=== PATIENT | female | born 1940 | race Caucasian/White ===

== ENCOUNTER 2016-10-15 23:30 | Emergency (ER) | payer MEDICARE, OTHER ==
[~2016-10-15] VITALS: Ht 175.3 cm; Wt 80.0 kg
[~2016-10-15 23:30] MED LIST: AMLO5TAB96 PO; CALCIUM SQ; CITA40 PO; CLON.5 OR; COUM3TAB PO; ERGO50000 PO; HYDR-3580 PO; METO25 PO; NEUR300C OR; OMPR20CCR PO; SIMV20TA PO; TRIH2 PO; [UNRECOGNIZED DRUG - CODE] EACH EYE
[2016-10-15 23:40] VITALS: BP 136/91; PULSE 82; RESP 20; TEMP 98.8; O2SAT 95
[2016-10-15] MEDS ORDERED: AMLO5TAB2 PO (23:54)
[2016-10-15] MEDS ORDERED: TRIH2 PO (23:54)
[2016-10-15] MEDS ORDERED: SERT-129 PO (23:54)
[2016-10-15] MEDS ORDERED: METO25TA3 PO (23:54)
[2016-10-15] MEDS ORDERED: GABA300C5 PO (23:54)
[2016-10-15] MEDS ORDERED: LUMI0.01 EACH EYE (23:54)
[2016-10-15] MEDS ORDERED: CLON0.5T PO (23:54)
[2016-10-15] MEDS ORDERED: OMEP20TA PO (23:54)
[2016-10-16] MEDS ORDERED: oxyCODONE/ACETAMINOPHEN 5 MG/325 MG TAB PO ONE (00:30)
--- NOTE | 2016-10-16 01:03 | PD ---
HPI . Fall Chief Complaint: Fall Time Seen by Provider: 00:24 Travel History International Travel<30 days: No Contact w/Intl Traveler<30days: No Traveled to known affect area: No History of Present Illness HPI Patient presents to us for evaluation of injury sustained in a fall. It was a mechanical fall. She reports injury to the left shoulder, right groin and left knee. They said her shoulder pain is very mild and rates it a 2 out of 10. She states her left knee pain is severe and she rates it as a 9 out of 10. PFSH Past Medical History Arthritis: Yes Heart Rhythm Problems: Yes Cancer: No Cardiovascular Problems: Yes High Cholesterol: Yes Diabetes: No Endocrine: No Gastrointestinal Disorders: Yes GERD: Yes Genitourinary: No Hypertension: Yes Immune Disorder: No Musculoskeletal: Yes Neurologic: Yes (spasmodic torticollis) Psychiatric: No Reproductive: Yes Respiratory: No Thyroid Disease: No Past Surgical History Body Medical Devices: HARDWARE DEXTER. HIPS Coronary Artery Bypass Graft: Yes Ear Surgery: Yes (bilateral cataract, LEFT RETINA REP.) Gynecologic Surgery: Yes (hysterectomy) Hysterectomy: Yes Neurologic Surgery: Yes (CERVICAL FUSION) Pacemaker: No Other Surgery: Yes (BELOW KNEE AMP LEFT LEG S/P NECROTIZING FASCITIS) Social History Alcohol Use: Yes (WINE ONCE A MONTH) Tobacco Use: No Substance Use: No Allergies-Medications (Allergen,Severity, Reaction): Coded Allergies: Contrast Media (Verified Allergy, Severe, 07/08/12) Erythrocin (Verified Allergy, Severe, 10/15/16) Morphine (Verified Allergy, Severe, 07/08/12) Streptomycin Sulfate (Verified Allergy, Severe, 07/08/12) Reported Meds & Prescriptions Reported Meds & Active Scripts Active Reported Gabapentin 300 Mg Cap 300 Mg PO TID Amlodipine (Amlodipine Besylate) 5 Mg Tab 5 Mg PO DAILY Omeprazole 20 Mg Tab 20 Mg PO BID Lumigan Opth Drops (Bimatoprost) 0.01% Soln 1 Drop EACH EYE HS Clonazepam 0.5 Mg Tab 1 Mg PO BID Trihexyphenidyl (Trihexyphenidyl HCl) 2 Mg Tab 1-2 Mg PO BID Metoprolol Tartrate 25 Mg Tab 25 Mg PO BID Sertraline (Sertraline HCl) 100 Mg Tab 50-100 Mg PO DAILY Review of Systems Except as stated in HPI: all other systems reviewed are Neg Musculoskeletal: Positive: Myalgias, Arthralgias Physical Exam Narrative GENERAL: Awake and alert and in no acute distress. SKIN: Warm and dry. HEAD: Atraumatic. Normocephalic. EYES: Pupils equal and round. NECK: Trachea midline. CARDIOVASCULAR: Regular rate and rhythm. RESPIRATORY: No accessory muscle use. MUSCULOSKELETAL: Previous left BKA. There is no obvious deformity of any of the aforementioned joints. She is noted to be pulling herself over in bed using her left arm. Log rolling of the right lower extremity does cause groin pain. NEUROLOGICAL: Awake and alert. No obvious cranial nerve deficits. Motor grossly within normal limits. Normal speech. PSYCHIATRIC: Appropriate mood and affect; insight and judgment normal. Data Data Last Documented VS Vital Signs Date Time Temp Pulse Resp B/P Pulse Ox O2 Delivery O2 Flow Rate FiO2 10/15/16 23:44 81 21 96 Room Air 10/15/16 23:40 98.8 136/91 Orders Hip, Uni(Ap&Lat) Wo Ap Pelvis (10/16/16 00:24) Knee, Ltd (1 Or 2vws) (10/16/16 00:24) Shoulder, Limited(2vws) (10/16/16 00:24) Oxycodone-Acetamin 5-325 Mg (Percocet (10/16/16 00:30) MDM Medical Decision Making Medical Screen Exam Complete: Yes Emergency Medical Condition: Yes Differential Diagnosis Differential diagnosis of extremity trauma includes but is not limited to fracture, sprain or strain, dislocation, contusion Narrative Course Patient presents for evaluation of injury sustained in a fall. She has no obvious external signs of injury. Last Impressions Shoulder X-Ray 10/16/1623 Signed Impressions: Service Date/Time: Sunday, October 16, 2016 00:47 - CONCLUSION: Unremarkable limited examination of the left shoulder. Sean Kelly MD Knee X-Ray 10/16/1623 Signed Impressions: Service Date/Time: Sunday, October 16, 2016 00:46 - CONCLUSION: Status post fwtvy-ejq-ccle amputation without evidence of fracture. Sean Kelly MD Hip X-Ray 10/16/1623 Signed Impressions: Service Date/Time: Sunday, October 16, 2016 00:46 - CONCLUSION: Status post right bipolar hemiarthroplasty without complication or fracture Sean Kelly MD The x-rays were all independently viewed by me Diagnosis Primary Impression: Strain of right inguinal muscle Qualified Code: S39.013A - Strain of right inguinal muscle, initial encounter Additional Impressions: Left shoulder strain Qualified Code: S46.912A - Left shoulder strain, initial encounter Contusion of left knee Qualified Code: S80.02XA - Contusion of left knee, initial encounter Patient Instructions: Contusion in Adults (DC), General Instructions, Groin Strain (ED), Narcotic given in the ED Disposition: 01 DISCHARGE HOME Condition: Stable Mattie Razo MD Oct 16, 2016 01:03
--- NOTE | 2016-10-16 01:06 | RADRPT ---
EXAM DATE/TIME: 10/16/2016 00:46 [facility] COMPARISON: No previous studies available for comparison. INDICATIONS : Right hip pain from fall tonight. MEDICAL HISTORY : None. SURGICAL HISTORY : Total right hip replacement. ENCOUNTER: Initial ACUITY: 1 day PAIN SCORE: 5/10 LOCATION: Right hip. FINDINGS: A two view examination of the right hip was performed. Patient has had a bipolar hemiarthroplasty on the right CONCLUSION: Status post right bipolar hemiarthroplasty without complication or fracture Sean Kelly MD on October 16, 2016 at 1:05 Board Certified Radiologist. This report was verified electronically.
--- NOTE | 2016-10-16 01:07 | RADRPT ---
EXAM DATE/TIME: 10/16/2016 00:47 [facility] COMPARISON: No previous studies available for comparison. INDICATIONS : Left shoulder pain from fall tonight. MEDICAL HISTORY : None. SURGICAL HISTORY : None. ENCOUNTER: Initial ACUITY: 1 day PAIN SCORE: 5/10 LOCATION: Right shoulder. FINDINGS: Two view examination of the left shoulder demonstrates no evidence of fracture or dislocation. The g lenohumeral and acromioclavicular joints are maintained. Bony mineralization is normal. CONCLUSION: Unremarkable limited examination of the left shoulder. Sean Kelly MD on October 16, 2016 at 1:05 Board Certified Radiologist. This report was verified electronically.
--- NOTE | 2016-10-16 01:11 | RADRPT ---
EXAM DATE/TIME: 10/16/2016 00:46 [facility] COMPARISON: No previous studies available for comparison. INDICATIONS : Left knee pain from fall tonight. MEDICAL HISTORY : None. SURGICAL HISTORY : Below knee amputation. ENCOUNTER: Initial ACUITY: 1 day PAIN SCORE: 5/10 LOCATION: Left knee. FINDINGS: Two view examination of the left knee demonstrates no evidence of fracture or dislocation. Bony mine ralization is normal. The suprapatellar soft tissues suggest small joint effusion. Patient's had a b ebmh-gtm-tsoo amputation CONCLUSION: Status post kpqfr-fwl-skon amputation without evidence of fracture. Sean Kelly MD on October 16, 2016 at 1:09 Board Certified Radiologist. This report was verified electronically.
== END 2016-10-16 02:50 | disposition home or self-care (01) ==
LOC: NEPC 23:30
DX: S80.02XA Contusion of left knee, initial encounter (principal); S46.912A Strain of unspecified muscle, fascia and tendon at shoulder and upper arm level, left arm, initial encounter; S39.013A Strain of muscle, fascia and tendon of pelvis, initial encounter; W19.XXXA Unspecified fall, initial encounter; Y93.9 Activity, unspecified; Y92.9 Unspecified place or not applicable; Y99.9 Unspecified external cause status; E78.00 Pure hypercholesterolemia, unspecified; I10 Essential (primary) hypertension
CPT/HCPCS: 73030; 73502; 73560; 99284

== ENCOUNTER 2017-01-16 00:44 | Emergency (ER) | payer MEDICARE, OTHER ==
[~2017-01-16] VITALS: Ht 170.2 cm; Wt 78.0 kg
[~2017-01-16 00:44] MED LIST changes: +AMLO5TAB2 PO; -AMLO5TAB96 PO; -CALCIUM SQ; -CITA40 PO; -CLON.5 OR; +CLON0.5T PO; -COUM3TAB PO; -ERGO50000 PO; +GABA300C5 PO; -HYDR-3580 PO; +LUMI0.01 EACH EYE; -METO25 PO; +METO25TA3 PO; -NEUR300C OR; +OMEP20TA PO; -OMPR20CCR PO; +SERT-129 PO; -SIMV20TA PO; -[UNRECOGNIZED DRUG - CODE] EACH EYE
[2017-01-16 00:49] VITALS: BP 183/101; PULSE 86; RESP 16; TEMP 97.6; O2SAT 96
--- NOTE | 2017-01-16 01:06 | PD ---
HPI Chief Complaint: Fall Time Seen by Provider: 00:53 Travel History International Travel<30 days: No Contact w/Intl Traveler<30days: No History of Present Illness HPI The patient is a 76 year old female who presents to the [facility] emergency department with a history of transferring from her wheelchair to bed when her wheelchair suddenly collapsed underneath her. The patient reports that she landed on her right side. She reports that she cannot recall hitting her head, therefore she is concerned that she did have a loss of consciousness. The patient reports that she was able to call out to her son for help. Ambulance services were then called. The patient was noted to have a hematoma along the right samaritan. The patient additionally reports having right lateral rib cage pain and right hand pain. She denies having any neck pain, paresthesias, numbness, or weakness to her extremities. The patient denies having any shortness of breath. On review of systems, the patient denies having any other extremity pain, recent fevers, cough, congestion, abdominal pain, vomiting, diarrhea, new urinary symptoms, or new neurologic symptoms [facility] Past Medical History Narrative Medical The patient's past medical history is significant for coronary artery disease, depression, acid reflux, hyperlipidemia, history of a retinal detachment, history of thrombocytopenia followed by Dr. Oquendo. Arthritis: Yes Heart Rhythm Problems: Yes Cancer: No Cardiovascular Problems: Yes High Cholesterol: Yes Diabetes: No Endocrine: No Gastrointestinal Disorders: Yes GERD: Yes Genitourinary: No Hypertension: Yes Immune Disorder: No Musculoskeletal: Yes Neurologic: Yes (spasmodic torticollis) Psychiatric: No Reproductive: Yes Respiratory: No Thyroid Disease: No Past Surgical History Narrative Surgical The patient's past surgical history is significant for an appendectomy, cataract surgery, coronary artery bypass grafting, hip replacement, hysterectomy , left below the knee amputation related to necrotizing fasciitis, tonsillectomy. Body Medical Devices: HARDWARE DEXTER. HIPS Coronary Artery Bypass Graft: Yes Ear Surgery: Yes (bilateral cataract, LEFT RETINA REP.) Gynecologic Surgery: Yes (hysterectomy) Hysterectomy: Yes Neurologic Surgery: Yes (CERVICAL FUSION) Pacemaker: No Other Surgery: Yes (BELOW KNEE AMP LEFT LEG S/P NECROTIZING FASCITIS) Social History Alcohol Use: Yes (WINE ONCE A MONTH) Tobacco Use: No Substance Use: No Allergies-Medications (Allergen,Severity, Reaction): Coded Allergies: Contrast Media (Verified Allergy, Severe, 01/16/17) Erythrocin (Verified Allergy, Severe, 01/16/17) Morphine (Verified Allergy, Severe, 01/16/17) Streptomycin Sulfate (Verified Allergy, Severe, 01/16/17) Reported Meds & Prescriptions Reported Meds & Active Scripts Active Macrobid (Nitrofurantoin Monoh/Nitrofur Macro) 100 Mg Cap 100 Mg PO BID 7 Days Reported Gabapentin 300 Mg Cap 300 Mg PO TID Amlodipine (Amlodipine Besylate) 5 Mg Tab 5 Mg PO DAILY Omeprazole 20 Mg Tab 20 Mg PO BID Lumigan Opth Drops (Bimatoprost) 0.01% Soln 1 Drop EACH EYE HS Clonazepam 0.5 Mg Tab 1 Mg PO BID Trihexyphenidyl (Trihexyphenidyl HCl) 2 Mg Tab 1-2 Mg PO BID Metoprolol Tartrate 25 Mg Tab 25 Mg PO BID Sertraline (Sertraline HCl) 100 Mg Tab 50-100 Mg PO DAILY Review of Systems Except as stated in HPI: all other systems reviewed are Neg General / Constitutional: No: Fever Eyes: No: Visual changes HENT: Positive: Headaches, No: Rhinorrhea, Congestion, Neck Stiffness, Neck Pain Cardiovascular: Positive: Chest Pain or Discomfort (right lateral chest wall pain), No: Dyspnea on exertion Respiratory: No: Shortness of Breath Gastrointestinal: No: Nausea, Vomiting, Diarrhea, Abdominal Pain Genitourinary: No: Dysuria, Oliguria Musculoskeletal: Positive: Myalgias, Limited ROM, Pain Skin: No Rash Neurologic: Positive: Headache, No: Weakness, Focal Abnormalities, Change in Mentation, Slurred Speech, Sensory Disturbance Psychiatric: No: Depression Endocrine: No: Polydipsia Hematologic/Lymphatic: No: Easy Bruising Physical Exam Narrative General: The patient is a well-developed well-nourished female in no acute distress. Head and Neck exam: Head is normocephalic, evidence of trauma with hematoma, contusion formation along the right samaritan. There is no step-off or crepitus. Eyes: EOMI, pupils are equal round and reactive to light. Nose: Midline septum with pink mucous membranes Mouth: Dentition unremarkable. Moist mucus membranes. Posterior oropharynx is not erythematous. No tonsillar hypertrophy. Uvula midline. Airway patent. Neck: No palpable lymphadenopathy. No nuchal rigidity. No thyromegaly. Cardiovascular: Regular rate and rhythm without murmurs, gallops, or rubs. Lungs: Clear to auscultation bilaterally. No wheezes, rhonchi, or rales. The patient has no visible erythema or ecchymosis to the chest wall. The patient does however report having lower right chest wall discomfort on palpation along the anterior axillary line, lower ribs. There is no crepitus. There is no step off. There is no flail segment. Abdomen: Soft, without tenderness to palpation in all 4 quadrants of the abdomen. No guarding, rebound, or rigidity. Normal bowel sounds are audible. No tenderness on palpation of McBurney's point. Extremities: No clubbing, cyanosis, or edema. 2+ pulses in all 4 extremities. No calf tenderness on palpation of the right calf. The patient on the left side has a below the knee amputation that appears to be well-healed. The patient on examination of the right hand reports pain along the center of the right hand. There is no visible deformity. The patient reports having pain with attempts at placing the right hand into a fist. She is easily able to do this on the left side. She has less than 3 second capillary refill. She has intact sensation over all fingertips. There is no crepitus on palpation. There is no deformity noted. Back: No spinous process tenderness to palpation. No step-off or crepitus. No erythema or ecchymosis. No costovertebral angle tenderness to palpation. Neurologic Exam: Grossly nonfocal. The patient has a resting tremor noted on examination which she reports is chronic. Skin Exam: No rash noted. Intact skin that is warm and dry. Data Data Last Documented VS Vital Signs Date Time Temp Pulse Resp B/P Pulse Ox O2 Delivery O2 Flow Rate FiO2 01/16/17 01:05 82 15 94 Room Air 01/16/17 00:49 97.6 183/101 Orders Hand, Complete ([id number]) (01/16/17 00:54) Ice/Cold Pack (01/16/17 00:54) Ribs, Uni (W/Exp Cxr-Min 3vw) (01/16/17 00:54) Ct Brain W/O Iv Contrast(Rout) (01/16/17 00:54) Ct Cerv Spine W/O Contrast (01/16/17 00:54) Electrocardiogram (01/16/17 00:54) Complete Blood Count With Diff (01/16/17 00:54) Basic Metabolic Panel (Bmp) (01/16/17 00:54) Prothrombin Time / Inr (Pt) (01/16/17 00:54) Act Partial Throm Time (Ptt) (01/16/17 00:54) Urinalysis - C+S If Indicated (01/16/17 00:54) Pelvis, Ap Only (Routine) (01/16/17 00:54) Iv Access Insert/Monitor (01/16/17 00:54) Ecg Monitoring (01/16/17 00:54) Oximetry (01/16/17 00:54) Acetaminophen (Tylenol) (01/16/17 02:30) Labs Laboratory Tests Test 01/16/17 01/16/17 02:00 03:30 Prothrombin Time 10.0 SEC Prothromb Time International 0.9 RATIO Ratio Activated Partial 20.7 SEC Thromboplast Time Urine Color LIGHT-YELLOW Urine Turbidity CLEAR Urine pH 7.5 Urine Specific Burnett 1.005 Urine Protein NEG mg/dL Urine Glucose (UA) NEG mg/dL Urine Ketones NEG mg/dL Urine Occult Blood NEG Urine Nitrite NEG Urine Bilirubin NEG Urine Urobilinogen LESS THAN 2.0 MG/DL Urine Leukocyte Esterase MOD Urine RBC LESS THAN 1 /hpf Urine WBC 6 /hpf Urine Squamous Epithelial <1 /hpf Cells Urine Bacteria RARE /hpf Microscopic Urinalysis Comment CULT NOT INDICATED Sodium Level 141 MEQ/L Potassium Level 4.1 MEQ/L Chloride Level 109 MEQ/L Carbon Dioxide Level 23.7 MEQ/L Anion Gap 8 MEQ/L Blood Urea Nitrogen 16 MG/DL Creatinine 0.60 MG/DL Estimat Glomerular Filtration 97 ML/MIN Rate Random Glucose 95 MG/DL Calcium Level 8.9 MG/DL White Blood Count 5.8 TH/MM3 Red Blood Count 5.51 MIL/MM3 Hemoglobin 15.4 GM/DL Hematocrit 45.3 % Mean Corpuscular Volume 82.2 FL Mean Corpuscular Hemoglobin 27.9 PG Mean Corpuscular Hemoglobin 33.9 % Concent Red Cell Distribution Width 13.7 % Platelet Count 113 TH/MM3 Mean Platelet Volume 9.4 FL Neutrophils (%) (Auto) 64.5 % Lymphocytes (%) (Auto) 26.8 % Monocytes (%) (Auto) 6.8 % Eosinophils (%) (Auto) 1.5 % Basophils (%) (Auto) 0.4 % Neutrophils # (Auto) 3.7 TH/MM3 Lymphocytes # (Auto) 1.5 TH/MM3 Monocytes # (Auto) 0.4 TH/MM3 Eosinophils # (Auto) 0.1 TH/MM3 Basophils # (Auto) 0.0 TH/MM3 CBC Comment DIFF FINAL Differential Comment MDM Medical Decision Making Medical Screen Exam Complete: Yes Emergency Medical Condition: Yes Medical Record Reviewed: Yes Interpretation(s) Last Impressions Ribs X-Ray 01/16/1753 Signed Impressions: Service Date/Time: Monday, January 16, 2017 01:18 - CONCLUSION: Faint nondisplaced fracture involving the anterior right seventh rib. Vikash Terry MD Pelvis X-Ray 01/16/1753 Signed Impressions: Service Date/Time: Monday, January 16, 2017 01:17 - CONCLUSION: No acute fracture or joint dislocation. Vikash Terry MD Head CT 01/16/1753 Signed Impressions: Service Date/Time: Monday, January 16, 2017 01:32 - CONCLUSION: 1. No focal or acute intracranial hemorrhage. 2. Unremarkable CT scan of the brain for patient's age. 3. Soft tissue swelling over the right scalp. Vikash Terry MD Hand X-Ray 01/16/1753 Signed Impressions: Service Date/Time: Monday, January 16, 2017 01:13 - CONCLUSION: Osteopenia and bony degenerative changes. No acute fracture or joint dislocation. Vikash Terry MD Cervical Spine CT 01/16/1753 Signed Impressions: Service Date/Time: Monday, January 16, 2017 01:32 - CONCLUSION: 1. No acute bony fracture. 2. Diffuse primary bony degenerative changes, disc degeneration and disc space narrowing throughout the entire cervical spine. 3. There is facet arthritis at multiple levels predominantly on the right side with narrowing of the right neural foramina Vikash Terry MD Differential Diagnosis Intracranial hemorrhage, versus cervical spine trauma, versus right hand fracture, versus contusions and abrasions, versus rib fracture, versus pneumothorax, versus hemothorax Narrative Course During the course of the patients emergency department visit, the patients history, examination, and differential diagnosis were reviewed with the patient. The patient had IV access obtained and blood work sent for analysis. The patient was placed on a cardiac rehab nurse with oximetry and blood pressure monitoring. An ECG was ordered. The patient's ECG reveals a sinus rhythm with occasional premature ventricular complexes heart rate of 72, QRS duration is 99 ms, QTC 433 ms, no acute ST segment elevation or depression. The patient was initially provided Tylenol for pain. An ice pack for swelling and discomfort. The patients laboratory studies were reviewed and remarkable for a white count of 5.8, hemoglobin 15.4, platelets 113 which is stable compared to previously, differential unremarkable, basic metabolic profile reveals a chloride of 109, PT 10, PTT 20.7, urinalysis shows moderate leukocyte esterase, 6 wbc's, rare bacteria. The patient was given a prescription for Macrobid. Radiology studies were reviewed and remarkable for a right hand x-ray that shows osteopenia and bony degenerative changes, no acute fracture or dislocation right rib series reveals a faint nondisplaced fracture involving the anterior right seventh rib, no other acute abnormality. No pneumothorax. CT scan of the brain shows no focal or acute intracranial hemorrhage. CT scan of the C-spine shows no acute bony fracture, diffuse primary bony degenerative changes, disc degeneration and disc space narrowing throughout the entire cervical spine. There is facet arthritis as at multiple levels predominantly on the right side with narrowing of the right neural foramina. The patient is instructed to take Tylenol as needed for discomfort as written on the package, use ice as needed for discomfort/swelling. The patient was instructed to do activity as tolerated. The patient is instructed to follow-up with her primary care physician for reexamination in 2 days. The patient is resting comfortably and feels better, is alert and in no distress. The patients results and examination findings were discussed with the patient. The repeat examination is unremarkable and benign. The history, exam, diagnostic testing, and current condition do not suggest any significant pathology to warrant further testing, continued ED treatment, admission, or surgical evaluation at this point. The vital signs have been stable. The patient does not have uncontrollable pain, intractable vomiting, or other significant symptoms. The patient's condition is stable and appropriate for discharge. The patient will pursue further outpatient evaluation with a primary care physician or other designated or consulting physician as indicated in the discharge instructions. The patient expressed understanding and was agreeable with this plan. Diagnosis Primary Impression: Head injury Qualified Code: S09.90XA - Head injury, initial encounter Additional Impressions: Right rib fracture Qualified Code: S22.31XA - Closed fracture of one rib of right side, initial encounter Cystitis Referrals: Primary Care Physician 2 days Patient Instructions: General Instructions, Head Injury (ED), Rib Fracture (ED) , Urinary Tract Infection in Women (ED) Additional Instructions: The patient is instructed to take Tylenol as needed for discomfort as written on the package, use ice as needed for discomfort/swelling. The patient was instructed to do activity as tolerated. The patient is instructed to follow-up with her primary care physician for reexamination in 2 days. Med/Other Pt SpecificInfo: Prescription(s) given Scripts Nitrofurantoin Monohydrate Macrocrystals (Macrobid)100 Mg Oca381 Mg PO BID 7 Days Ref 0 Prov:Zuleika Bowie MD 01/16/17 Disposition: 01 DISCHARGE HOME Condition: Stable Zuleika Bowie MD Jan 16, 2017 01:06
--- NOTE | 2017-01-16 01:40 | RADRPT ---
EXAM DATE/TIME: 01/16/2017 01:13 [facility] COMPARISON: No previous studies available for comparison. INDICATIONS : Right hand pain after fall. MEDICAL HISTORY : None. SURGICAL HISTORY : None. ENCOUNTER: Initial ACUITY: 1 day PAIN SCORE: 10/10 LOCATION: Right hand FINDINGS: Three view examination of the right hand demonstrates no soft tissue swelling, dislocation, or fractu re. There is osteopenia of the bony structures. There is primary degenerative changes involving the P IP and DIP joints. There are degenerative changes of the carpal bones.. CONCLUSION: Osteopenia and bony degenerative changes. No acute fracture or joint dislocation. Vikash Terry MD on January 16, 2017 at 1:38 Board Certified Radiologist. This report was verified electronically.
--- NOTE | 2017-01-16 01:41 | RADRPT ---
EXAM DATE/TIME: 01/16/2017 01:17 [facility] COMPARISON: No previous studies available for comparison. INDICATIONS : Pelvic pain post fall. MEDICAL HISTORY : None. SURGICAL HISTORY : None. ENCOUNTER: Initial ACUITY: 1 day PAIN SCORE: 10/10 LOCATION: Bilateral pelvis FINDINGS: A single frontal view of the pelvis demonstrates no evidence of fracture. The bony pelvic ring is in tact. There is a right hip prosthesis in place. There are 3 internal fixation nails in the proximal l eft femur. There is good alignment the SI joints and pubic symphysis. There is a stimulator over the right sacrum. CONCLUSION: No acute fracture or joint dislocation. Vikash Terry MD on January 16, 2017 at 1:39 Board Certified Radiologist. This report was verified electronically.
--- NOTE | 2017-01-16 01:45 | RADRPT ---
EXAM DATE/TIME: 01/16/2017 01:18 [facility] COMPARISON: No previous studies available for comparison. INDICATIONS : Right side rib pain post fall. MEDICAL HISTORY : None. SURGICAL HISTORY : None. ENCOUNTER: Initial ACUITY: 1 day PAIN SCORE: 10/10 LOCATION: Right chest FINDINGS: Multiple views of the right ribs were performed. There appears to be a faint nondisplaced or fracture involving the anterior right seventh rib. Otherwise, the bony structures appear to be grossly intact . No right pleural effusion or pneumothorax is demonstrated. There is osteopenia of the bony structur es.. CONCLUSION: Faint nondisplaced fracture involving the anterior right seventh rib. Vikash Terry MD on January 16, 2017 at 1:41 Board Certified Radiologist. This report was verified electronically.
--- NOTE | 2017-01-16 01:46 | RADRPT ---
EXAM DATE/TIME: 01/16/2017 01:32 [facility] COMPARISON: No previous studies available for comparison. INDICATIONS : Trauma, fall. Hematoma to right forehead. RADIATION DOSE: 36.97 CTDIvol (mGy) MEDICAL HISTORY : Gastroesophageal reflux disease. Hypertension. SURGICAL HISTORY : CABG Hysterectomy. ENCOUNTER: Initial ACUITY: 1 day PAIN SCALE: 3/10 LOCATION: cranial TECHNIQUE: Multiple contiguous axial images were obtained of the head. Using automated exposure control and adj ustment of the mA and/or kV according to patient size, radiation dose was kept as low as reasonably a chievable to obtain optimal diagnostic quality images. DICOM format image data is available electro nically for review and comparison. FINDINGS: CEREBRUM: The ventricles are normal for age. No evidence of midline shift, mass lesion, hemorrhage or acute in farction. No extra-axial fluid collections are seen. POSTERIOR FOSSA: The cerebellum and brainstem are intact. The 4th ventricle is midline. The cerebellopontine angle i s unremarkable. EXTRACRANIAL: The visualized portion of the orbits is intact. There is soft tissue swelling of the scalp along the right parietal area. SKULL: The calvaria is intact. No evidence of skull fracture. CONCLUSION: 1. No focal or acute intracranial hemorrhage. 2. Unremarkable CT scan of the brain for patient's age. 3. Soft tissue swelling over the right scalp. Vikash Terry MD on January 16, 2017 at 1:43 Board Certified Radiologist. This report was verified electronically.
--- NOTE | 2017-01-16 01:53 | RADRPT ---
EXAM DATE/TIME: 01/16/2017 01:32 [facility] COMPARISON: No previous studies available for comparison. INDICATIONS : Trauma, fall. Hematome to right forehead. RADIATION DOSE: 21.20 CTDIvol (mGy) MEDICAL HISTORY : Hypertension. Gastroesophageal reflux disease. SURGICAL HISTORY : CABG Hysterectomy. ENCOUNTER: Initial ACUITY: 1 day PAIN SCALE: 2/10 LOCATION: neck TECHNIQUE: Volumetric scanning of the cervical spine was performed. Multiplanar reconstructions in the sagittal, coronal and oblique axial planes were performed. Using automated exposure control and adjustment o f the mA and/or kV according to patient size, radiation dose was kept as low as reasonably achievable to obtain optimal diagnostic quality images. DICOM format image data is available electronically f or review and comparison. FINDINGS: VERTEBRAE: There is moderate diffuse primary degenerative changes throughout the cervical spine. There is disc d egeneration and disc space narrowing at all levels. No acute bony fracture. There is chronic loss of height of T1 and T2. ALIGNMENT: No evidence of subluxation. C2-C3: The bony spinal canal is normal in size. No evidence of disc bulge or herniation. The neural forami na are bilaterally patent. C3-C4: The bony spinal canal is normal in size. No evidence of disc bulge or herniation. The right neural f oramina is narrowed due to facet arthritis. The left neural foramina is patent. C4-C5: The bony spinal canal is normal in size. No evidence of disc bulge or herniation. The right neural f oramina is narrowed by facet arthritis. The left neural foramina is patent. C5-C6: The bony spinal canal is normal in size. No evidence of disc bulge or herniation. There is narrowing of the right neural foramina from facet arthritis. The left neural foramina is patent. C6-C7: The bony spinal canal is normal in size. No evidence of disc bulge or herniation. There is narrowing of the right neural foramina from facet arthritis. The left neural foramen is patent. C7-T1: The bony spinal canal is normal in size. No evidence of disc bulge or herniation. The neural forami na are bilaterally patent. CONCLUSION: 1. No acute bony fracture. 2. Diffuse primary bony degenerative changes, disc degeneration and disc space narrowing throughout t he entire cervical spine. 3. There is facet arthritis at multiple levels predominantly on the right side with narrowing of the right neural foramina Vikash Terry, MD on January 16, 2017 at 1:48 Board Certified Radiologist. This report was verified electronically.
[2017-01-16] MEDS ORDERED: ACETAMINOPHEN 325 MG TAB PO ONE (02:30)
[2017-01-16 02:31] LABS: BICARBONATE 23.7 MEQ/L (21.0-32.0); POTASSIUM 4.1 MEQ/L (3.5-5.1)
[2017-01-16 02:34] LABS: APTT (PATIENT) 20.7 SEC (24.3-30.1); INTERNATIONAL NORMALIZED RATIO 0.9 RATIO
[2017-01-16 02:38] LABS: BACTERIA, URINE RARE /hpf; BLOOD, URINE NEG (NEG); COMMENT (UR) CULT NOT INDICATED; CULTURE IF INDICATED CULT NOT INDICATED; GLUCOSE,URINE NEG (NEG); KETONE, URINE NEG (NEG); NITRITE,URINE NEG (NEG); PH, URINE 7.5 (5.0-8.5); SQUAMOUS EPITHELIAL CELL URINE <1 /hpf (0-5); URINE COLOR LIGHT-YELLOW (YELLW/STRAW)
[2017-01-16] MEDS ORDERED: MACR100C2 PO (03:43)
[2017-01-16 04:15] LABS: AUTOMATED NEUTROPHIL # 3.7 TH/MM3 (1.8-7.7); BASOPHIL % 0.4 % (0.0-2.0); EOSINOPHIL # 0.1 TH/MM3 (0-0.4); EOSINOPHIL % 1.5 % (0.0-4.0); HEMATOCRIT 45.3 % (35.0-46.0); HEMO FLAGS DIFF FINAL; LYMPH % 26.8 % (9.0-44.0); LYMPHOCYTE # 1.5 TH/MM3 (1.0-4.8); MEAN CELL VOLUME 82.2 FL (80.0-100.0); MEAN CORPUSCULAR HEMOGLOBIN 27.9 PG (27.0-34.0); MEAN CORPUSCULAR HGB CONC 33.9 % (32.0-36.0); MONO % 6.8 % (0.0-8.0); NEUT % 64.5 % (16.0-70.0); PLATELET COUNT 113 TH/MM3 (150-450); RED BLOOD COUNT 5.51 MIL/MM3 (4.00-5.30); RED CELL DISTRIBUTION WIDTH 13.7 % (11.6-17.2); WHITE BLOOD COUNT 5.8 TH/MM3 (4.0-11.0)
--- NOTE | 2017-01-16 18:35 | EKG ---
Date Performed: 01/16/2017 Time Performed: 02:11:33 PTAGE: 76 years EKG: Sinus rhythm WITH OCCASIONAL VENTRICULAR PREMATURE COMPLEXES LOW QRS VOLTAGE IN EXTREMITY LEADS SEPTAL MYOCARDIAL INFARCTION ABNORMAL ECG PREVIOUS TRACING : 07/08/2012 09.06 Compared to prior tracing no significant change DOCTOR: Dl Velázquez Interpretating Date/Time 01/16/2017 18:35:29
== END 2017-01-16 05:15 | disposition home or self-care (01) ==
LOC: NEPC 00:44
DX: S09.90XA Unspecified injury of head, initial encounter (principal); S22.31XA Fracture of one rib, right side, initial encounter for closed fracture; N30.90 Cystitis, unspecified without hematuria; I49.3 Ventricular premature depolarization; I10 Essential (primary) hypertension; K21.9 Gastro-esophageal reflux disease without esophagitis; E78.00 Pure hypercholesterolemia, unspecified; M13.88 Other specified arthritis, other site; W05.0XXA Fall from non-moving wheelchair, initial encounter
CPT/HCPCS: 70450; 71101; 72125; 72170; 73130; 80048; 81001; 85025; 85610; 85730; 93005; 99285

== ENCOUNTER 2017-01-20 06:36 | Emergency (ER) | payer MEDICARE, OTHER ==
[~2017-01-20] VITALS: Ht 175.3 cm; Wt 85.0 kg
[~2017-01-20 06:36] MED LIST changes: +MACR100C2 PO
[2017-01-20 06:39] VITALS: BP 184/87; PULSE 82; RESP 22; TEMP 98.6; O2SAT 96
[2017-01-20] MEDS ORDERED: SODIUM CHLORIDE 0.9% FLUSH 10 ML FLUSH IVF PRN (08:00)
[2017-01-20] MEDS ORDERED: MORPHINE SULFATE 8 MG/ML INJ IV PUSH ONE (08:00)
--- NOTE | 2017-01-20 08:04 | PD ---
HPI Chief Complaint: Pain: Acute or Chronic Time Seen by Provider: 07:35 Travel History International Travel<30 days: No Contact w/Intl Traveler<30days: No Traveled to known affect area: No History of Present Illness HPI Patient is a 76 year old female who presents with right sided rib pain and right shoulder pain after a fall 4 days ago on her right side. She came in to the ER 4 days ago and imaging revealed a right 7th rib fracture without any evidence of pneumothorax. She was discharged with tylenol for pain relief but she has been having constant pain and some difficulty taking deep breaths since the fall. Aggravating factors include deep breaths and rolling over in bed. She denies any fever, cough, chills, or sputum production. She denies any anticoagulation medication. PFSH Past Medical History Arthritis: Yes Heart Rhythm Problems: Yes Cancer: No Cardiovascular Problems: Yes (HTN, CABG X 2 ) High Cholesterol: Yes Diabetes: No Endocrine: No Gastrointestinal Disorders: Yes GERD: Yes Genitourinary: No Hypertension: Yes Immune Disorder: No Musculoskeletal: Yes Neurologic: Yes (spasmodic torticollis) Psychiatric: No Reproductive: Yes Respiratory: No Thyroid Disease: No Influenza Vaccination: No Past Surgical History Body Medical Devices: HARDWARE DEXTER. HIPS Coronary Artery Bypass Graft: Yes Ear Surgery: Yes (bilateral cataract, LEFT RETINA REP.) Gynecologic Surgery: Yes (hysterectomy) Hysterectomy: Yes Neurologic Surgery: Yes (CERVICAL FUSION) Pacemaker: No Other Surgery: Yes (BELOW KNEE AMP LEFT LEG S/P NECROTIZING FASCITIS) Social History Alcohol Use: Yes (WINE ONCE A MONTH) Tobacco Use: No Substance Use: No Allergies-Medications (Allergen,Severity, Reaction): Coded Allergies: Contrast Media (Verified Allergy, Severe, 01/20/17) Erythrocin (Verified Allergy, Severe, 01/20/17) Morphine (Verified Allergy, Severe, 01/20/17) Streptomycin Sulfate (Verified Allergy, Severe, 01/20/17) Reported Meds & Prescriptions Reported Meds & Active Scripts Active Azithromycin 250 Mg Tab 250 Mg PO DIRECTED Take 2 tabs (500 mg) on day 1 then 1 tab daily x 4 days. [place] (Hydrocodone-Acetaminophen) 5-325 mg Tab 1 Tab PO Q6H PRN Macrobid (Nitrofurantoin Monoh/Nitrofur Macro) 100 Mg Cap 100 Mg PO BID 7 Days Reported Gabapentin 300 Mg Cap 300 Mg PO TID Amlodipine (Amlodipine Besylate) 5 Mg Tab 5 Mg PO DAILY Omeprazole 20 Mg Tab 20 Mg PO BID [place] Opth Drops (Bimatoprost) 0.01% Soln 1 Drop EACH EYE HS Clonazepam 0.5 Mg Tab 1 Mg PO BID Trihexyphenidyl (Trihexyphenidyl HCl) 2 Mg Tab 1-2 Mg PO BID Metoprolol Tartrate 25 Mg Tab 25 Mg PO BID Sertraline (Sertraline HCl) 100 Mg Tab 50-100 Mg PO DAILY Review of Systems Except as stated in HPI: all other systems reviewed are Neg General / Constitutional: No: Fever, Chills Physical Exam Narrative GENERAL: Well-nourished, well-developed patient. Appears somewhat uncomfortable. SKIN: Focused skin assessment warm/dry. HEAD: Normocephalic. There is healing ecchymosis to the right side of the face. No linda signs. EYES: No scleral icterus. No injection or drainage. NECK: Supple, trachea midline. No JVD or lymphadenopathy. CARDIOVASCULAR: Regular rate and rhythm without murmurs, gallops, or rubs. Minimally tender right-sided chest wall. Overlying bruises. Lacerations. RESPIRATORY: Breath sounds equal bilaterally. No accessory muscle use. GASTROINTESTINAL: Abdomen soft, non-tender, nondistended. MUSCULOSKELETAL: No cyanosis, or edema. BACK: Nontender without obvious deformity. No CVA tenderness. Data Data Last Documented VS Vital Signs Date Time Temp Pulse Resp B/P Pulse Ox O2 Delivery O2 Flow Rate FiO2 01/20/17 08:46 13 01/20/17 08:00 100 Nasal Cannula 2 01/20/17 06:39 98.6 82 184/87 Orders Basic Metabolic Panel (Bmp) (01/20/17 07:50) Complete Blood Count With Diff (01/20/17 07:50) Chest, Single Ap (01/20/17 07:50) Ecg Monitoring (01/20/17 07:50) Iv Access Insert/Monitor (01/20/17 07:50) Oximetry (01/20/17 07:50) Oxygen Administration (01/20/17 07:50) Sodium Chloride 0.9% Flush (Ns Flush) (01/20/17 08:00) Morphine Inj (Morphine Inj) (01/20/17 08:00) Resp Incentive Spirometry (01/20/17 ) Labs Laboratory Tests Test 01/20/17 08:00 White Blood Count 6.8 TH/MM3 Red Blood Count 6.07 MIL/MM3 Hemoglobin 16.7 GM/DL Hematocrit 50.1 % Mean Corpuscular Volume 82.5 FL Mean Corpuscular Hemoglobin 27.5 PG Mean Corpuscular Hemoglobin 33.4 % Concent Red Cell Distribution Width 13.8 % Platelet Count 123 TH/MM3 Mean Platelet Volume 9.2 FL Neutrophils (%) (Auto) 73.3 % Lymphocytes (%) (Auto) 19.2 % Monocytes (%) (Auto) 6.7 % Eosinophils (%) (Auto) 0.4 % Basophils (%) (Auto) 0.4 % Neutrophils # (Auto) 5.0 TH/MM3 Lymphocytes # (Auto) 1.3 TH/MM3 Monocytes # (Auto) 0.5 TH/MM3 Eosinophils # (Auto) 0.0 TH/MM3 Basophils # (Auto) 0.0 TH/MM3 CBC Comment DIFF FINAL Differential Comment Sodium Level 141 MEQ/L Potassium Level 4.8 MEQ/L Chloride Level 109 MEQ/L Carbon Dioxide Level 22.1 MEQ/L Anion Gap 10 MEQ/L Blood Urea Nitrogen 18 MG/DL Creatinine 0.78 MG/DL Estimat Glomerular Filtration 72 ML/MIN Rate Random Glucose 104 MG/DL Calcium Level 9.0 MG/DL MDM Medical Decision Making Medical Screen Exam Complete: Yes Emergency Medical Condition: Yes Differential Diagnosis Rib fracture, atelectasis, pneumonia, Narrative Course Patient roomed emergency department, she was given pain medicine and is feeling much better afterwards. Review of her records show that she did have a nondisplaced right-sided rib fracture. X-ray today does show some minimal atelectasis I reviewed the film and does not show anything concerning for an acute infectious process. Nonetheless we'll place the patient on some antibiotics discussed pain management as well as incentive spirometry to treat atelectasis and maintain healthy lungs. Discussed need follow-up with primary care physician symptomatic management home and returned ED criteria. She her and her son are agreeable to this plan. Diagnosis Primary Impression: Chest wall pain Additional Impression: Atelectasis Med/Other Pt SpecificInfo: Prescription(s) given Scripts Azithromycin 250 Mg [id number] Mg PO DIRECTED #6 TAB Ref 0 Take 2 tabs (500 mg) on day 1 then 1 tab daily x 4 days. Prov:Durga Henriquez MD 01/20/17 Hydrocodone-Acetaminophen ([place])5-325 mg Tab1 Tab PO Q6H PRN (PAIN) #12 TAB Ref 0 Prov:Durga Henriquez MD 01/20/17 Disposition: 01 DISCHARGE HOME Condition: Stable Durga Henriquez MD Jan 20, 2017 08:04
[2017-01-20 08:20] LABS: BASOPHIL % 0.4 % (0.0-2.0); EOSINOPHIL % 0.4 % (0.0-4.0); HEMATOCRIT 50.1 % (35.0-46.0); HEMO FLAGS DIFF FINAL; LYMPH % 19.2 % (9.0-44.0); LYMPHOCYTE # 1.3 TH/MM3 (1.0-4.8); MEAN CELL VOLUME 82.5 FL (80.0-100.0); MEAN CORPUSCULAR HEMOGLOBIN 27.5 PG (27.0-34.0); MEAN CORPUSCULAR HGB CONC 33.4 % (32.0-36.0); MONO % 6.7 % (0.0-8.0); NEUT % 73.3 % (16.0-70.0); PLATELET COUNT 123 TH/MM3 (150-450); RED BLOOD COUNT 6.07 MIL/MM3 (4.00-5.30); RED CELL DISTRIBUTION WIDTH 13.8 % (11.6-17.2); WHITE BLOOD COUNT 6.8 TH/MM3 (4.0-11.0)
--- NOTE | 2017-01-20 08:31 | RADRPT ---
EXAM DATE/TIME: 01/20/2017 07:50 [facility] COMPARISON: No previous studies available for comparison. INDICATIONS : Patient fell last ; right upper chest pain. MEDICAL HISTORY : Hypertension. SURGICAL HISTORY : CABG. ENCOUNTER: Initial ACUITY: 2 days PAIN SCORE: 9/10 LOCATION: Right chest FINDINGS: The left hemidiaphragm is elevated and there may be mass or consolidation left lung base. There is ev idence for prior median sternotomy. There are atherosclerotic calcifications of the aorta due to lunchroom worker deja atherosclerotic disease. Heart and mediastinum are unremarkable for technique. CONCLUSION: Elevated left hemidiaphragm with possible consolidation left lung base difficult to evaluate. Lebron Francisco MD on January 20, 2017 at 8:28 Board Certified Radiologist. This report was verified electronically.
[2017-01-20 08:46] VITALS: RESP 13
[2017-01-20 09:00] LABS: BICARBONATE 22.1 MEQ/L (21.0-32.0)
[2017-01-20 09:02] LABS: POTASSIUM 4.8 MEQ/L (3.5-5.1)
[2017-01-20] MEDS ORDERED: AZIT250T3 PO (09:32)
[2017-01-20] MEDS ORDERED: NORC5TAB PO (09:32)
== END 2017-01-20 09:51 | disposition home or self-care (01) ==
LOC: NEPC 06:36
DX: R07.81 Pleurodynia (principal); J98.11 Atelectasis
CPT/HCPCS: 71010; 80048; 85025; 96374; 99284; J2270

== ENCOUNTER 2017-04-17 19:06 | Emergency (ER) | payer MEDICARE, OTHER ==
[~2017-04-17] VITALS: Ht 177.8 cm; Wt 85.0 kg
[~2017-04-17 19:06] MED LIST changes: +AZIT250T3 PO; +NORC5TAB PO
[2017-04-17 19:07] VITALS: BP 144/78; PULSE 68; RESP 16; TEMP 98; O2SAT 96
[2017-04-17] MEDS ORDERED: SODIUM CHLORIDE 0.9% FLUSH 10 ML FLUSH IV FLUSH PRN (21:45)
[2017-04-17] MEDS ORDERED: diphenhydrAMINE HCL 50 MG/ML VIAL IV PUSH ONE (21:45)
[2017-04-17] MEDS ORDERED: MORPHINE SULFATE 4 MG/ML INJ IV PUSH ONE (21:45)
--- NOTE | 2017-04-17 21:47 | PD ---
HPI Chief Complaint: Fall Time Seen by Provider: 21:35 Travel History International Travel<30 days: No Contact w/Intl Traveler<30days: No Traveled to known affect area: No History of Present Illness HPI 76-year-old female presents the emergency department status post fall partially 5 hours prior to arrival transferring from the commode to her wheelchair. 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 Patient did hit her head but denies loss of consciousness but does have a headache from 6 out of 10 currently. She also has pain in the left radial wrist. She has some superficial abrasions to the anterior middle scalp and left lateral brow. There is no significant bleeding. He denies neck pain or stiffness. He denies dizziness or nausea or vomiting. Patient has multiple allergies. Patient states she can take morphine if they give her Benadryl prior to it. PFSH Past Medical History Arthritis: Yes Heart Rhythm Problems: Yes Cancer: No Cardiovascular Problems: Yes (HTN, CABG X 2 ) High Cholesterol: Yes Diabetes: No Endocrine: No Gastrointestinal Disorders: Yes GERD: Yes Genitourinary: No Hypertension: Yes Immune Disorder: No Musculoskeletal: Yes Neurologic: Yes (spasmodic torticollis) Psychiatric: No Reproductive: Yes Respiratory: No Thyroid Disease: No Tetanus Vaccination: Unknown Influenza Vaccination: No ?: Not Past Surgical History Body Medical Devices: HARDWARE DEXTER. HIPS Coronary Artery Bypass Graft: Yes Ear Surgery: Yes (bilateral cataract, LEFT RETINA REP.) Gynecologic Surgery: Yes (hysterectomy) Hysterectomy: Yes Neurologic Surgery: Yes (CERVICAL FUSION) Pacemaker: No Other Surgery: Yes (BELOW KNEE AMP LEFT LEG S/P NECROTIZING FASCITIS) Social History Alcohol Use: Yes (WINE ONCE A MONTH) Tobacco Use: No Substance Use: No Allergies-Medications (Allergen,Severity, Reaction): Coded Allergies: diatrizoate meglumine (Unverified Allergy, Severe, 02/14/17) erythromycin base (Unverified Allergy, Severe, 02/14/17) gadobenic acid (Unverified Allergy, Severe, 02/14/17) gadodiamide (Unverified Allergy, Severe, 02/14/17) gadoteridol (Unverified Allergy, Severe, 02/14/17) iodixanol (Unverified Allergy, Severe, 02/14/17) iohexol (Unverified Allergy, Severe, 02/14/17) morphine (Unverified Allergy, Severe, 02/14/17) streptomycin (Unverified Allergy, Severe, 02/14/17) Reported Meds & Prescriptions Reported Meds & Active Scripts Active [place] (Hydrocodone-Acetaminophen) 5-325 mg Tab 1 Tab PO Q6H PRN Azithromycin 250 Mg Tab 250 Mg PO DIRECTED Take 2 tabs (500 mg) on day 1 then 1 tab daily x 4 days. Macrobid (Nitrofurantoin Monoh/Nitrofur Macro) 100 Mg Cap 100 Mg PO BID 7 Days Reported Gabapentin 300 Mg Cap 300 Mg PO TID Amlodipine (Amlodipine Besylate) 5 Mg Tab 5 Mg PO DAILY Omeprazole 20 Mg Tab 20 Mg PO BID [place] Opth Drops (Bimatoprost) 0.01% Soln 1 Drop EACH EYE HS Clonazepam 0.5 Mg Tab 1 Mg PO BID Trihexyphenidyl (Trihexyphenidyl HCl) 2 Mg Tab 1-2 Mg PO BID Metoprolol Tartrate 25 Mg Tab 25 Mg PO BID Sertraline (Sertraline HCl) 100 Mg Tab 50-100 Mg PO DAILY Review of Systems Except as stated in HPI: all other systems reviewed are Neg General / Constitutional: No: Fever Eyes: No: Diploplia, Blurred Vision, Photophobia, Drainage, Redness, Blind Spots, Visual changes, Blindness HENT: Positive: Headaches, No: Vertigo, Lightheadedness, Sore Throat, Rhinitis , Rhinorrhea, Congestion, Nosebleed, Neck Stiffness, Neck Pain, Gingival Bleeding, Dental Difficulties, Ear Discharge, Earache Cardiovascular: No: Chest Pain or Discomfort Respiratory: No: Shortness of Breath Gastrointestinal: No: Nausea, Abdominal Pain Genitourinary: No: Dysuria Musculoskeletal: Positive: Arthralgias, Limited ROM, Pain (see history of present illness.) Skin: No Rash Neurologic: No: Weakness Psychiatric: No: Depression Endocrine: No: Polydipsia Hematologic/Lymphatic: No: Easy Bruising Physical Exam Narrative GENERAL: Patient is alert and oriented 3. SKIN: Warm and dry. Patient has superficial abrasions to the anterior middle scalp and left lateral brow. Patient has ecchymosis and swelling over the left radial wrist HEAD: Normocephalic. Mild tenderness along the apex anterior scalp. No bony tenderness or deformity is noted. EYES: Pupils equal and round. No scleral icterus. No injection or drainage. ENT: No nasal bleeding or discharge. Mucous membranes pink and moist. No dental injury. Pharynx is clear. Airway is patent. NECK: Trachea midline. No bony tenderness or step-off. Range of motion is full and nontender. Cervical spine is cleared utilizing nexus criteria CARDIOVASCULAR: Regular rate and rhythm. RESPIRATORY: No accessory muscle use. Clear to auscultation. Breath sounds equal bilaterally. MUSCULOSKELETAL: Extremities without clubbing, cyanosis, or edema. Patient has pain and swelling over the left radial wrist consistent with possible fracture. No obvious loss of motion however strength is limited secondary to pain. Range of motion of the wrist is limited also secondary to pain. Neurovascular exam is normal distally. NEUROLOGICAL: Awake and alert. No obvious cranial nerve deficits. Motor grossly within normal limits. Five out of 5 muscle strength in the arms and legs. Normal speech. PSYCHIATRIC: Appropriate mood and affect; insight and judgment normal. Data Data Last Documented VS Vital Signs Date Time Temp Pulse Resp B/P (MAP) Pulse Ox O2 Delivery O2 Flow Rate FiO2 04/17/17 21:53 Room Air 04/17/17 19:07 98.0 68 16 144/78 (100) 96 Orders Orders Complete Blood Count With Diff (04/17/17 21:40) Comprehensive Metabolic Panel (04/17/17 21:40) Prothrombin Time / Inr (Pt) (04/17/17 21:40) Act Partial Throm Time (Ptt) (04/17/17 21:40) Iv Access Insert/Monitor (04/17/17 21:40) Ecg Monitoring (04/17/17 21:40) Oximetry (04/17/17 21:40) NPO (04/17/17 21:40) Morphine Inj (Morphine Inj) (04/17/17 21:45) Sodium Chloride 0.9% Flush (Ns Flush) (04/17/17 21:45) Electrocardiogram (04/17/17 21:40) Diphenhydramine Inj (Benadryl Inj) (04/17/17 21:45) Ct Brain W/O Iv Contrast(Rout) (04/17/17 21:40) Wrist, Complete ([id number]) (04/17/17 21:40) Ice/Cold Pack (04/17/17 21:40) Splint Or Brace Apply/Monitor (04/17/17 22:24) Ed Discharge Order (04/17/17 22:29) Labs Laboratory Tests Test 04/17/17 21:45 White Blood Count 6.1 TH/MM3 Red Blood Count 5.66 MIL/MM3 Hemoglobin 15.9 GM/DL Hematocrit 46.6 % Mean Corpuscular Volume 82.2 FL Mean Corpuscular Hemoglobin 28.1 PG Mean Corpuscular Hemoglobin Concent 34.2 % Red Cell Distribution Width 13.7 % Platelet Count 63 TH/MM3 Mean Platelet Volume 10.3 FL Neutrophils (%) (Auto) 74.4 % Lymphocytes (%) (Auto) 19.2 % Monocytes (%) (Auto) 5.1 % Eosinophils (%) (Auto) 1.0 % Basophils (%) (Auto) 0.3 % Neutrophils # (Auto) 4.5 TH/MM3 Lymphocytes # (Auto) 1.2 TH/MM3 Monocytes # (Auto) 0.3 TH/MM3 Eosinophils # (Auto) 0.1 TH/MM3 Basophils # (Auto) 0.0 TH/MM3 CBC Comment AUTO DIFF Prothrombin Time 10.0 SEC Prothromb Time International Ratio 0.9 RATIO Activated Partial Thromboplast Time 25.2 SEC Blood Urea Nitrogen 16 MG/DL Creatinine 0.59 MG/DL Random Glucose 124 MG/DL Total Protein 7.0 GM/DL Albumin 3.8 GM/DL Calcium Level 9.1 MG/DL Alkaline Phosphatase 60 U/L Aspartate Amino Transf (AST/SGOT) 14 U/L Alanine Aminotransferase (ALT/SGPT) 16 U/L Total Bilirubin 0.5 MG/DL Sodium Level 140 MEQ/L Potassium Level 3.8 MEQ/L Chloride Level 106 MEQ/L Carbon Dioxide Level 27.3 MEQ/L Anion Gap 7 MEQ/L Estimat Glomerular Filtration Rate 99 ML/MIN MDM Medical Decision Making Medical Screen Exam Complete: Yes Emergency Medical Condition: Yes Medical Record Reviewed: Yes Differential Diagnosis Fall. Head injury. Contusion. Intracranial bleed. Left wrist sprain. Left wrist contusion. Possible fracture. Narrative Course Patient appears medically stable at time of exam. CT of the head is ordered without contrast. X-ray of the left wrist is ordered. IV access is obtained basic labs ordered including CBC, CMP, and EKG. Patient is kept nothing by mouth. Patient is given 25 mg Benadryl IV as well as 2 mg morphine IV for pain. EKG is unchanged from previous of December 2016. Labs are unremarkable. CT of the brain shows no acute process per radiologist. X-ray of the left wrist show no fracture without obvious arthritis. Patient will be given carpal tunnel splint to the left wrist for comfort. Patient is given Lortab 5/325 one every 6 hours when necessary pain #12. She should follow with her primary care physician in the next week to ensure improvement. Patient can return to emergency department with worsening symptoms if necessary. Diagnosis Primary Impression: Fall Qualified Codes: W19.XXXA - Unspecified fall, initial encounter Additional Impressions: Contusion of scalp, initial encounter Contusion of left wrist, initial encounter Referrals: Primary Care Physician Patient Instructions: Abrasion (ED), Concussion (ED), Contusion in Adults (ED) , General Instructions, Narcotic given in the ED, Wrist Sprain (ED) Additional Instructions: CT of the brain shows no acute process per radiologist. X-ray of the left wrist show no fracture without obvious arthritis. Patient will be given carpal tunnel splint to the left wrist for comfort. Patient is given Lortab 5/325 one every 6 hours when necessary pain #12. She should follow with her primary care physician in the next week to ensure improvement. Patient can return to emergency department with worsening symptoms if necessary. Med/Other Pt SpecificInfo: Prescription(s) given Scripts Hydrocodone-Acetaminophen ([place]) 5-325 mg Tab 1 TAB PO Q6H Y for PAIN, #12 TAB 0 Refills Prov: Shaan Zarate MD 04/17/17 Disposition: 01 DISCHARGE HOME Condition: Stable Harley Rodriguez Apr 17, 2017 21:47
[2017-04-17 22:05] LABS: AUTOMATED NEUTROPHIL # 4.5 TH/MM3 (1.8-7.7); BASOPHIL % 0.3 % (0.0-2.0); EOSINOPHIL # 0.1 TH/MM3 (0-0.4); HEMATOCRIT 46.6 % (35.0-46.0); LYMPH % 19.2 % (9.0-44.0); LYMPHOCYTE # 1.2 TH/MM3 (1.0-4.8); MEAN CELL VOLUME 82.2 FL (80.0-100.0); MEAN CORPUSCULAR HEMOGLOBIN 28.1 PG (27.0-34.0); MEAN CORPUSCULAR HGB CONC 34.2 % (32.0-36.0); MONO % 5.1 % (0.0-8.0); NEUT % 74.4 % (16.0-70.0); PLATELET COUNT 63 TH/MM3 (150-450); RED BLOOD COUNT 5.66 MIL/MM3 (4.00-5.30); RED CELL DISTRIBUTION WIDTH 13.7 % (11.6-17.2); WHITE BLOOD COUNT 6.1 TH/MM3 (4.0-11.0)
[2017-04-17 22:11] LABS: HEMO FLAGS AUTO DIFF
[2017-04-17 22:14] LABS: ANION GAP 7 MEQ/L (5-15); AST (GOT) 14 U/L (15-37); BICARBONATE 27.3 MEQ/L (21.0-32.0); BLOOD UREA NITROGEN 16 MG/DL (7-18); CHLORIDE 106 MEQ/L (98-107); GLOMERULAR FILTRATION RATE 99 ML/MIN (>89); POTASSIUM 3.8 MEQ/L (3.5-5.1); SODIUM (NA) 140 MEQ/L (136-145)
[2017-04-17 22:15] LABS: ALT (GPT) 16 U/L (10-53)
--- NOTE | 2017-04-17 22:16 | RADRPT ---
EXAM DATE/TIME: 04/17/2017 21:56 [facility] COMPARISON: CT BRAIN W/O CONTRAST, January 16, 2017, 1:32. INDICATIONS : Trauma, fall. Laceration to forehead. RADIATION DOSE: 56.35 CTDIvol (mGy) MEDICAL HISTORY : Hypertension. SURGICAL HISTORY : Fusion, cervical. CABG Hysterectomy. ENCOUNTER: Initial ACUITY: 1 day PAIN SCALE: 7/10 LOCATION: Bilateral cranial TECHNIQUE: Multiple contiguous axial images were obtained of the head. Using automated exposure control and adj ustment of the mA and/or kV according to patient size, radiation dose was kept as low as reasonably a chievable to obtain optimal diagnostic quality images. DICOM format image data is available electro nically for review and comparison. FINDINGS: There is no evidence for intracranial hemorrhage, mass effect, mass lesions, or edema. The visualize d bony structures appear intact. Slight degree of brain atrophy is seen. Slight periventricular whit e matter changes are seen nonspecific mostly consistent with chronic small vessel ischemic changes. There are no signs of acute infarction for technique. Subcentimeter calcification is again seen in th e right periventricular region chronic in nature. CONCLUSION: Slight atrophic and small vessel ischemic changes without any evidence for acute hemorrhage or mass effect. Lebron Francisco MD on April 17, 2017 at 22:12 Board Certified Radiologist. This report was verified electronically.
[2017-04-17 22:17] LABS: ALKALINE PHOSPHATASE 60 U/L (45-117); APTT (PATIENT) 25.2 SEC (24.3-30.1); INTERNATIONAL NORMALIZED RATIO 0.9 RATIO; TOTAL BILIRUBIN ADULT 0.5 MG/DL (0.2-1.0)
--- NOTE | 2017-04-17 22:22 | RADRPT ---
EXAM DATE/TIME: 04/17/2017 21:56 [facility] COMPARISON: No previous studies available for comparison. INDICATIONS : Wrist pain status post fall. MEDICAL HISTORY : Hypertension. SURGICAL HISTORY : CABG. ENCOUNTER: Initial ACUITY: 1 day PAIN SCORE: 10/10 LOCATION: Left wrist. FINDINGS: No definite fractures, or dislocations are identified. No definite lytic or sclerotic lesion is seen . Slight osteopenia is seen. 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 CONCLUSION: Chronic changes and no evidence for acute fracture. Lebron Francisco MD on April 17, 2017 at 22:20 Board Certified Radiologist. This report was verified electronically.
[2017-04-17] MEDS ORDERED: NORC5TAB PO (22:28)
[2017-04-17 22:45] LABS: PLATELET ESTIMATE SMEAR LOW (NORMAL); PLATELET MORPHOLOGY NORMAL (NORMAL); SCAN/DIFF AUTO DIFF CONFIRMED
--- NOTE | 2017-04-18 13:56 | EKG ---
Date Performed: 04/17/2017 Time Performed: 22:30:28 PTAGE: 76 years EKG: ECTOPIC ATRIAL BRADYCARDIA NONSPECIFIC T-WAVE ABNORMALITY ABNORMAL RHYTHM ECG NO PREVIOUS TRACING DOCTOR: Sean Antonio Interpretating Date/Time 04/18/2017 13:46:33
== END 2017-04-17 23:21 | disposition home or self-care (01) ==
LOC: NEPC 19:06
DX: S00.03XA Contusion of scalp, initial encounter (principal); S60.212A Contusion of left wrist, initial encounter; I10 Essential (primary) hypertension; W18.11XA Fall from or off toilet without subsequent striking against object, initial encounter; Y93.89 Activity, other specified
CPT/HCPCS: 70450; 73110; 80053; 85025; 85610; 85730; 93005; 96374; 96375; 99285; J1200; J2270; L3908

== ENCOUNTER 2017-06-10 12:56 | Emergency (ER) | payer MEDICARE, OTHER ==
[~2017-06-10 12:56] MED LIST changes: -OMEP20TA PO; +OMEP20TA93 PO
[2017-06-10 12:58] VITALS: BP 182/88; PULSE 70; RESP 20; TEMP 97.9; O2SAT 95
--- NOTE | 2017-06-10 13:51 | PD ---
HPI Chief Complaint: Fall Time Seen by Provider: 13:10 Travel History International Travel<30 days: No Contact w/Intl Traveler<30days: No Traveled to known affect area: No History of Present Illness HPI The patient was seen and examined in the presence of the nurse. This patient had a fall during the night. Duration 12 hours. Symptoms severity at this point is mild. She says she was tired and stumbled but doesn't recall the exact specifics of the fall. She has had a left BKA. Her son is present but didn't see it either. She does have headache. She doesn't think she lost consciousness. She has no neck pain. She also complains of right knee pain. No alleviating factors. No exacerbating factors. PFSH Past Medical History Hx Anticoagulant Therapy: No Arthritis: Yes Heart Rhythm Problems: Yes Cancer: No Cardiovascular Problems: Yes High Cholesterol: Yes Diabetes: No Endocrine: No Gastrointestinal Disorders: Yes GERD: Yes Genitourinary: No Hypertension: Yes Immune Disorder: No Musculoskeletal: Yes Neurologic: Yes (spasmodic torticollis) Psychiatric: No Reproductive: Yes Respiratory: Yes Thyroid Disease: No Past Surgical History Body Medical Devices: HARDWARE DEXTER. HIPS Coronary Artery Bypass Graft: Yes Ear Surgery: Yes (bilateral cataract, LEFT RETINA REP.) Gynecologic Surgery: Yes (hysterectomy) Hysterectomy: Yes Neurologic Surgery: Yes (CERVICAL FUSION) Pacemaker: No Other Surgery: Yes (BELOW KNEE AMP LEFT LEG S/P NECROTIZING FASCITIS) Social History Alcohol Use: Yes (WINE ONCE A MONTH) Tobacco Use: No Substance Use: No Allergies-Medications (Allergen,Severity, Reaction): Coded Allergies: diatrizoate meglumine (Unverified Allergy, Severe, 06/10/17) erythromycin base (Unverified Allergy, Severe, 06/10/17) gadobenic acid (Unverified Allergy, Severe, 06/10/17) gadodiamide (Unverified Allergy, Severe, 06/10/17) gadoteridol (Unverified Allergy, Severe, 06/10/17) iodixanol (Unverified Allergy, Severe, 06/10/17) iohexol (Unverified Allergy, Severe, 06/10/17) morphine (Unverified Allergy, Severe, 06/10/17) streptomycin (Unverified Allergy, Severe, 06/10/17) Reported Meds & Prescriptions Reported Meds & Active Scripts Active [place] (Hydrocodone-Acetaminophen) 5-325 mg Tab 1 Tab PO Q6H PRN Reported Gabapentin 300 Mg Cap 300 Mg PO TID Amlodipine (Amlodipine Besylate) 5 Mg Tab 5 Mg PO DAILY Omeprazole 20 Mg Tab 20 Mg PO BID Lumigan Opth Drops (Bimatoprost) 0.01% Soln 1 Drop EACH EYE HS Clonazepam 0.5 Mg Tab 1 Mg PO BID Trihexyphenidyl (Trihexyphenidyl HCl) 2 Mg Tab 1-2 Mg PO BID Metoprolol Tartrate 25 Mg Tab 25 Mg PO BID Sertraline (Sertraline HCl) 100 Mg Tab 50-100 Mg PO DAILY Review of Systems General / Constitutional: No: Fever Eyes: No: Visual changes HENT: Positive: Headaches Cardiovascular: No: Chest Pain or Discomfort Respiratory: No: Shortness of Breath Gastrointestinal: No: Abdominal Pain Genitourinary: No: Dysuria Musculoskeletal: Positive: Pain Skin: No Rash Neurologic: Positive: Headache, No: Weakness Psychiatric: No: Depression Endocrine: No: Polydipsia Hematologic/Lymphatic: No: Easy Bruising Physical Exam Narrative GENERAL: Pleasant elderly very hard of hearing well-developed patient in no apparent distress. SKIN: Focused skin assessment reveals no rash and nodules. Skin is Warm and dry. HEAD: 2.5 cm laceration to the top of the scalp. Normocephalic. EYES: Pupils equal and round. No scleral icterus. No injection or drainage. ENT: No nasal bleeding or discharge. Mucous membranes pink and moist. NECK: Trachea midline. No JVD. No midline tenderness CARDIOVASCULAR: Regular rate and rhythm. No murmur appreciated. RESPIRATORY: No accessory muscle use. Clear to auscultation. Breath sounds equal bilaterally. GASTROINTESTINAL: Abdomen soft, non-tender, nondistended. Hepatic and splenic margins not palpable. MUSCULOSKELETAL: Has left BKA . No clubbing. No cyanosis. No edema. Some tenderness to the right patella. NEUROLOGICAL: Awake and alert. No obvious cranial nerve deficits. Motor grossly within normal limits. Normal speech. She has tremor PSYCHIATRIC: Appropriate mood and affect; insight and judgment reduced Data Data Last Documented VS Vital Signs Date Time Temp Pulse Resp B/P (MAP) Pulse Ox O2 Delivery O2 Flow Rate FiO2 06/10/17 12:58 97.9 70 20 182/88 (119) [address] Brain W/O Iv Contrast(Rout) (06/10/17 ) Knee, Complete (4vws) (06/10/17 ) MDM Medical Decision Making Medical Screen Exam Complete: Yes Emergency Medical Condition: Yes Medical Record Reviewed: Yes Differential Diagnosis Intracranial hemorrhage, concussion, knee fracture Narrative Course I have reviewed the patient's electronic medical record. Patient is neurologically intact. She does have tremor and very hard of hearing. Procedure note: Patient gives verbal consent. Reports her tetanus is up-to-date. I cleaned the wound. She has a shallow 2.5 cm linear scalp laceration I closed it with javon. 3 applied No complications. She tolerated it well. Recommend [place] out in 10 days. Discussed this with son I reviewed her right knee x-rays which are normal Brain CT is negative Stable for outpatient follow-up. Diagnosis Primary Impression: Head injury Qualified Codes: S09.90XA - Unspecified injury of head, initial encounter Additional Impressions: Headache Qualified Codes: G44.319 - Acute post-traumatic headache, not intractable Contusion of right knee, initial encounter Additional Instructions: The patient was advised to follow up with their physician and return if they worsen. Javon out in 10 days Med/Other Pt SpecificInfo: Other Disposition: 01 DISCHARGE HOME Condition: Stable Greg Barrientos MD Jun 10, 2017 13:50
--- NOTE | 2017-06-10 14:04 | RADRPT ---
EXAM DATE/TIME: 06/10/2017 13:47 [facility] COMPARISON: CT BRAIN W/O CONTRAST, April 17, 2017, 21:56. INDICATIONS : Trauma, fall last night. Cephalgia. RADIATION DOSE: 33.00 CTDIvol (mGy) ; Patient motion MEDICAL HISTORY : Cardiovascular disease. Hypertension. SURGICAL HISTORY : Hysterectomy. ENCOUNTER: Initial ACUITY: 1 day PAIN SCALE: 7/10 LOCATION: Bilateral head TECHNIQUE: Multiple contiguous axial images were obtained of the head. Using automated exposure control and adj ustment of the mA and/or kV according to patient size, radiation dose was kept as low as reasonably a chievable to obtain optimal diagnostic quality images. DICOM format image data is available electro nically for review and comparison. FINDINGS: CEREBRUM: The ventricles are normal for age. No evidence of midline shift, mass lesion, hemorrhage or acute in farction. No extra-axial fluid collections are seen. Chronic stable changes are demonstrated bilater ally. POSTERIOR FOSSA: The cerebellum and brainstem are intact. The 4th ventricle is midline. The cerebellopontine angle i s unremarkable. EXTRACRANIAL: The visualized portion of the orbits is intact. SKULL: The calvaria is intact. No evidence of skull fracture. No significant change compared to the prior study. CONCLUSION: 1. Stable CT scan of the brain compared to the prior examination. 2. No focal or acute intracranial hemorrhage. Vikash Terry MD on June 10, 2017 at 14:00 Board Certified Radiologist. This report was verified electronically.
--- NOTE | 2017-06-10 14:21 | RADRPT ---
EXAM DATE/TIME: 06/10/2017 13:36 [facility] COMPARISON: No previous studies available for comparison. INDICATIONS : Fell today. MEDICAL HISTORY : Hypertension. SURGICAL HISTORY : Unobtainable. ENCOUNTER: Initial ACUITY: 1 day PAIN SCORE: Non-responsive. LOCATION: Right top of knee FINDINGS: Four view examination of the right knee demonstrates no evidence of fracture or dislocation. Bony mi neralization is normal. There are primary degenerative changes involving the knee joint. There is angelic rowing of the patellofemoral joint. No joint effusions. The suprapatellar soft tissues have a normal configuration. CONCLUSION: 1. No acute bony fracture. 2. Primary degenerative changes. Vikash Terry MD on June 10, 2017 at 14:18 Board Certified Radiologist. This report was verified electronically.
== END 2017-06-10 14:54 | disposition home or self-care (01) ==
LOC: NEPE 12:56
DX: S01.01XA Laceration without foreign body of scalp, initial encounter (principal); R25.1 Tremor, unspecified; R51 Headache; M19.90 Unspecified osteoarthritis, unspecified site; E78.00 Pure hypercholesterolemia, unspecified; I10 Essential (primary) hypertension; W19.XXXA Unspecified fall, initial encounter; Z89.512 Acquired absence of left leg below knee; Z79.899 Other long term (current) drug therapy
CPT/HCPCS: 12011; 70450; 73564

== ENCOUNTER 2017-12-22 13:17 | Emergency (ER) | payer MEDICARE, OTHER ==
[~2017-12-22] VITALS: Ht 177.8 cm; Wt 75.0 kg
[~2017-12-22 13:17] MED LIST changes: -AZIT250T3 PO; -MACR100C2 PO
[2017-12-22 13:20] VITALS: BP 192/106; PULSE 86; RESP 18; TEMP 97.5; O2SAT 95
--- NOTE | 2017-12-22 14:15 | PD ---
HPI Chief Complaint: Fall Time Seen by Provider: 14:08 Travel History International Travel<30 days: No Contact w/Intl Traveler<30days: No Traveled to known affect area: No History of Present Illness HPI 77-year-old female with history of hypertension, CABG, osteoporosis, essential tremor, left BKA presents emergency department for evaluation following a fall. Patient states she was her wheelchair when she misstepped, fell, she landed striking her head. She states that she felt dazed after she struck her head. She does not believe she lost consciousness. She denies any focal deficits or weakness. She has not been nauseous or vomiting. Patient also reports right hip pain. She reports neck pain with movement. Pain is constant, exacerbated with movement, moderate in severity. It does not radiate anywhere. She has no other symptoms to report at this time. PFSH Past Medical History Hx Anticoagulant Therapy: No Arthritis: Yes Heart Rhythm Problems: Yes Cancer: No Cardiovascular Problems: Yes High Cholesterol: Yes Diabetes: No Endocrine: No Gastrointestinal Disorders: Yes GERD: Yes Genitourinary: No Hypertension: Yes Immune Disorder: No Musculoskeletal: Yes Neurologic: Yes (spasmodic torticollis) Psychiatric: No Reproductive: Yes Respiratory: Yes Thyroid Disease: No Past Surgical History Body Medical Devices: HARDWARE DEXTER. HIPS Coronary Artery Bypass Graft: Yes Ear Surgery: Yes (bilateral cataract, LEFT RETINA REP.) Gynecologic Surgery: Yes (hysterectomy) Hysterectomy: Yes Neurologic Surgery: Yes (CERVICAL FUSION) Pacemaker: No Other Surgery: Yes (BELOW KNEE AMP LEFT LEG S/P NECROTIZING FASCITIS) Social History Alcohol Use: Yes (WINE ONCE A MONTH) Tobacco Use: No Substance Use: No Allergies-Medications (Allergen,Severity, Reaction): Coded Allergies: diatrizoate meglumine (Unverified Allergy, Severe, 06/10/17) erythromycin base (Unverified Allergy, Severe, 06/10/17) gadobenic acid (Unverified Allergy, Severe, 06/10/17) gadodiamide (Unverified Allergy, Severe, 06/10/17) gadoteridol (Unverified Allergy, Severe, 06/10/17) iodixanol (Unverified Allergy, Severe, 06/10/17) iohexol (Unverified Allergy, Severe, 06/10/17) morphine (Unverified Allergy, Severe, 06/10/17) streptomycin (Unverified Allergy, Severe, 06/10/17) Reported Meds & Prescriptions Reported Meds & Active Scripts Active Robaxin (Methocarbamol) 500 Mg Tab 500 Mg PO QID PRN Ibuprofen 600 Mg Tab 600 Mg PO Q8H PRN Amoxicillin 500 Mg Cap 500 Mg PO BID 10 Days Reported Simvastatin 20 Mg Tab 20 Mg PO DAILY Gabapentin 300 Mg Cap 300 Mg PO TID Amlodipine (Amlodipine Besylate) 5 Mg Tab 5 Mg PO DAILY Lumigan Opth Drops (Bimatoprost) 0.01% Soln 1 Drop EACH EYE HS Metoprolol Tartrate 25 Mg Tab 25 Mg PO BID Sertraline (Sertraline HCl) 100 Mg Tab 50-100 Mg PO DAILY Review of Systems Except as stated in HPI: all other systems reviewed are Neg Physical Exam Narrative GENERAL: Well-nourished elderly female patient, tremulous, but in no acute distress. SKIN: Focused skin assessment warm/dry. HEAD: Atraumatic. Normocephalic. No tenderness elicited palpation. EARS: Bilateral pinnae and external canals appear within normal limits. Right tympanic membrane is within normal limits. Left tympanic membrane is difficult to visualize due to cerumen however there is dried blood in the canal. EYES: Pupils equal and round. No scleral icterus. No injection or drainage. EOMI ENT: No nasal bleeding or discharge. Mucous membranes pink and moist. NECK: Trachea midline. No JVD. Cervical collar is applied. CARDIOVASCULAR: Regular rate and rhythm. No murmur appreciated. RESPIRATORY: No accessory muscle use. Diminished, likely due to poor respiratory effort.. Breath sounds equal bilaterally. Tenderness elicited palpation of the right anterior lateral thoracic cage. No crepitus. Even respirations. GASTROINTESTINAL: Abdomen soft, non-tender, nondistended. Hepatic and splenic margins not palpable. No guarding. No rebound tenderness. MUSCULOSKELETAL: No obvious deformities. No clubbing. No cyanosis. No edema. Left BKA. Tenderness elicited palpation of the right anterior lateral hip. No deformity. Patient has full flexion-extension of the right hip. There is no shortening or rotation of the lower extremity. Distal pulses are palpable. Cap refill within normal limits. NEUROLOGICAL: Awake and alert. No obvious cranial nerve deficits. Motor grossly within normal limits. Normal speech. PSYCHIATRIC: Appropriate mood and affect; insight and judgment normal. Data Data Last Documented VS Vital Signs Date Time Temp Pulse Resp B/P (MAP) Pulse Ox O2 Delivery O2 Flow Rate FiO2 12/22/17 15:10 18 97 Room Air 12/22/17 13:20 97.5 86 192/106 (134) Orders Orders Ct Brain W/O Iv Contrast(Rout) (12/22/17 ) Ct Cerv Spine W/O Contrast (12/22/17 ) Apply Cervical Collar (12/22/17 14:13) Chest, Single Ap (12/22/17 ) Hip, Uni(Ap&Lat) W Ap Pelvis (12/22/17 ) Ed Discharge Order (12/22/17 15:14) Remove Cervical Collar (12/22/17 15:14) Ibuprofen (Motrin) (12/22/17 15:15) Methocarbamol (Robaxin) (12/22/17 15:15) MDM Medical Decision Making Medical Screen Exam Complete: Yes Emergency Medical Condition: Yes Medical Record Reviewed: Yes Differential Diagnosis Minor head injury versus intracranial hemorrhage versus fracture versus dislocation Narrative Course 77-year-old female presents to the emergency department for evaluation following a fall. This was a mechanical fall. Patient appears well. She follows commands. She is oriented 3. Last Impressions Hip and Pelvis X-Ray 12/22/17 0000 Signed Impressions: CONCLUSION: Postoperative right hip replacement. No acute fracture or dislocation. Head CT 12/22/17 0000 Signed Impressions: CONCLUSION: 1. No acute intracranial abnormalities. Stable benign-appearing calcification in right frontal deep white matter. Chest X-Ray 12/22/17 0000 Signed Impressions: CONCLUSION: Elevated left hemidiaphragm with basilar atelectasis. No significant effusion. No pneumothorax. Cervical Spine CT 12/22/17 0000 Signed Impressions: CONCLUSION: 1. No acute findings. Moderate degenerative change without significant central canal stenosis. Multilevel facet arthropathy and foraminal encroachment is sta ble. I discussed the patient with my attending physician. Patient be treated for perforated tympanic membrane. She is encouraged to follow-up with primary care provider and seek research lab assistant evaluation. She agrees to return immediately with acute worsening symptoms. Diagnosis Primary Impression: Minor head injury without loss of consciousness Qualified Codes: S09.90XA - Unspecified injury of head, initial encounter Additional Impressions: Perforation of tympanic membrane, traumatic Qualified Codes: S09.22XA - Traumatic rupture of left ear drum, initial encounter Contusion of hip, right Qualified Codes: S70.01XA - Contusion of right hip, initial encounter Referrals: Ear / Nose / Throat Specialist Primary Care Physician Patient Instructions: General Instructions, Head Injury (ED), Ruptured Eardrum (ED) Additional Instructions: Avoid water submersion Follow-up with a primary care provider Return immediately with acute worsening symptoms Med/Other Pt SpecificInfo: Prescription(s) given Scripts Methocarbamol (Robaxin) 500 Mg Tab 500 MG PO QID Y for MUSCLE SPASM, #20 TAB 0 Refills Prov: Elo Salinas 12/22/17 Ibuprofen (Ibuprofen) 600 Mg Tab 600 MG PO Q8H Y for PAIN, #30 TAB 0 Refills Prov: Elo Salinas 12/22/17 Amoxicillin (Amoxicillin) 500 Mg Cap 500 MG PO BID for Infection for 10 Days, #20 CAP 0 Refills Prov: Elo Salinas 12/22/17 Disposition: 01 DISCHARGE HOME Condition: Stable Elo Salinas Dec 22, 2017 14:15
[2017-12-22] MEDS ORDERED: SIMV20TA PO (14:34)
--- NOTE | 2017-12-22 15:04 | RADRPT ---
EXAM DATE: 12/22/2017 2:58 PM EDT AGE/SEX: 77 years / Female INDICATIONS: Trauma, fall last night. CLINICAL DATA: This is the patient's initial encounter. Patient reports that signs and symptoms have been present for 1 day and indicates a pain score of 5/10. MEDICAL/SURGICAL HISTORY: Hypertension. Gastroesophageal reflux disease. CABG. Hysterectomy. RADIATION DOSE: 56.35 CTDI (mGy) COMPARISON: [facility] [place], [place] BRAIN W/O CONTRAST, 06/10/2017. . TECHNIQUE: CT of the head without contrast. Using automated exposure control and adjustment of the mA and/or kV according to patient size, radiation dose was kept as low as reasonably achievable to ob tain optimal diagnostic quality images. DICOM format image data is available electronically for revi ew and comparison. FINDINGS: Cerebrum: The ventricles are normal for age. No evidence of midline shift, mass lesion, hemorrhage or acute infarction. No extraaxial fluid collections are seen. Posterior Fossa: The cerebellum and brainstem are intact. The 4th ventricle is midline. The cerebe llopontine angle is unremarkable. Extracranial: The visualized portion of the orbits is intact. Skull: The calvaria is intact. No evidence of skull fracture. CONCLUSION: 1. No acute intracranial abnormalities. Stable benign-appearing calcification in right frontal deep white matter. Electronically signed by: Christ Ferreira MD 12/22/2017 3:03 PM EDT
--- NOTE | 2017-12-22 15:06 | RADRPT ---
EXAM DATE: 12/22/2017 3:03 PM EDT AGE/SEX: 77 years / Female INDICATIONS: Rib pain after fall. CLINICAL DATA: This is the patient's initial encounter. Patient reports that signs and symptoms have been present for 1 day and indicates a pain score of 5/10. MEDICAL/SURGICAL HISTORY: . Cardiovascular disease. Hypertension Hysterectomy. CABG. COMPARISON: [facility] [place], CHEST SINGLE AP, 01/20/2017. . FINDINGS: Elevated left hemidiaphragm. Basilar atelectasis. No effusion. Postop median sternotomy. No pneumotho rax. No dense consolidation. CONCLUSION: Elevated left hemidiaphragm with basilar atelectasis. No significant effusion. No pneumothorax. Electronically signed by: Christ Ferreira MD 12/22/2017 3:05 PM EDT
--- NOTE | 2017-12-22 15:07 | RADRPT ---
EXAM DATE: 12/22/2017 3:05 PM EDT AGE/SEX: 77 years / Female INDICATIONS: Right hip pain after fall. CLINICAL DATA: This is the patient's initial encounter. Patient reports that signs and symptoms have been present for 1 day and indicates a pain score of 5/10. MEDICAL/SURGICAL HISTORY: . Cardiovascular disease. Hypertension. CABG. Hysterectomy. Pain st imulator. ORIF left hip. Below knee amputation left. Total right hip. COMPARISON: No prior exams available for comparison. FINDINGS: Postoperative right total hip replacement. Stimulator wire overlies right hemipelvis. No acute fractu re or dislocation. No bony destructive changes. Previous screw fixation left proximal femur. Bones ar e osteopenic. Kyphoplasty changes in lower lumbar spine. CONCLUSION: Postoperative right hip replacement. No acute fracture or dislocation. Electronically signed by: Christ Ferreira MD 12/22/2017 3:06 PM EDT
--- NOTE | 2017-12-22 15:11 | RADRPT ---
EXAM DATE: 12/22/2017 3:05 PM EDT AGE/SEX: 77 years / Female INDICATIONS: Trauma, fall last night. CLINICAL DATA: This is the patient's initial encounter. Patient reports that signs and symptoms have been present for 1 day and indicates a pain score of 5/10. MEDICAL/SURGICAL HISTORY: Hypertension. Gastroesophageal reflux disease. Hysterectomy. CABG. RADIATION DOSE: 19.78 CTDI (mGy) [place] [facility] [place]AST, 01/16/2017. . TECHNIQUE: Contiguous axial images were obtained using helical multirow detector technique. The vol umetric data was post-processed with multiplanar reconstruction in oblique axial, sagittal, and coron al planes. Using automated exposure control and adjustment of the mA and/or kV according to patient s ize, radiation dose was kept as low as reasonably achievable to obtain optimal diagnostic quality jasmyn ges. DICOM format image data is available electronically for review and comparison. FINDINGS: No acute fracture or spondylolisthesis. There is facet arthropathy and degenerative disc disease with multilevel foraminal narrowing not significantly changed from December 1999 and mild compression deformi ty of T2 is stable. CONCLUSION: 1. No acute findings. Moderate degenerative change without significant central canal stenosis. Multi level facet arthropathy and foraminal encroachment is stable. Electronically signed by: Christ Ferreira MD 12/22/2017 3:09 PM EDT
[2017-12-22] MEDS ORDERED: METHOCARBAMOL 500 MG TAB PO ONE (15:15)
[2017-12-22] MEDS ORDERED: IBUPROFEN 600 MG TAB PO ONE (15:15)
[2017-12-22] MEDS ORDERED: IBUP-232 PO (15:18)
[2017-12-22] MEDS ORDERED: ROBA500T PO (15:18)
[2017-12-22] MEDS ORDERED: AMOX500C PO (15:18)
== END 2017-12-22 15:38 | disposition home or self-care (01) ==
LOC: NEPC 13:17
DX: S09.90XA Unspecified injury of head, initial encounter (principal); S09.22XA Traumatic rupture of left ear drum, initial encounter; S70.01XA Contusion of right hip, initial encounter; E78.00 Pure hypercholesterolemia, unspecified; I10 Essential (primary) hypertension; W19.XXXA Unspecified fall, initial encounter
CPT/HCPCS: 70450; 71045; 72125; 73502; 99284